=== PATIENT | female | born 1995 | race African-American/Black ===

== ENCOUNTER 2020-07-10 14:30 | Emergency (ER) | payer SELFPAY ==
[~2020-07-10] VITALS: Ht 162.6 cm; Wt 48.0 kg
[2020-07-10 14:31] VITALS: BP 105/63
== END 2020-07-10 15:21 | disposition home or self-care (01) ==
LOC: ER 14:30
DX: B35.4 Tinea corporis (principal); L40.9 Psoriasis, unspecified
CPT/HCPCS: 99282